=== PATIENT | female | born 1990 | race Caucasian/White ===

== ENCOUNTER 2018-09-16 16:52 | Emergency (ER) | payer MEDICAID, OTHER ==
[~2018-09-16] VITALS: Ht 157.5 cm; Wt 67.9 kg
[2018-09-16 17:01] VITALS: BP 126/60; PULSE 65; RESP 18; Ht 157.5 cm; Wt 67.9 kg
[2018-09-16] MEDS ORDERED: IBUP-1542 PO (17:18)
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
== END 2018-09-16 17:34 | disposition home or self-care (01) ==
LOC: FTE 16:52
DX: S09.22XA Traumatic rupture of left ear drum, initial encounter (principal); W26.8XXA Contact with other sharp object(s), not elsewhere classified, initial encounter; Y92.9 Unspecified place or not applicable
CPT/HCPCS: 99282